=== PATIENT | female | born 1970 | race Caucasian/White ===

== ENCOUNTER 2018-12-19 18:23 | Emergency (ER) | payer OTHER ==
[~2018-12-19] VITALS: Ht 170.2 cm; Wt 113.4 kg
[2018-12-19] MEDS ORDERED: NORCO 5-325 TA1 EACH PO (19:27)
== END 2018-12-19 19:52 | disposition home or self-care (01) ==
LOC: ED 18:23
PROC: 0HDRXZZ Extraction of Toe Nail, External Approach (ICD-10-PCS; principal; 2018-12-19)
DX: S91.201A Unspecified open wound of right great toe with damage to nail, initial encounter (principal); I10 Essential (primary) hypertension; W22.8XXA Striking against or struck by other objects, initial encounter
CPT/HCPCS: 11730; 99283-25